=== PATIENT | male | born 1970 | race Caucasian/White ===

== ENCOUNTER 2024-12-10 13:47 | Outpatient (AMB) | payer OTHER, SELFPAY ==
[2024-12-10 14:00] VITALS: BMI 24.3
--- NOTE | 2024-12-10 14:00 | A.SPINEOV_ITS ---
Vital Signs 12/10/24 14:00 Height 5 ft 7 in Weight 155 lb BMI 24.3 Intake Visit Reasons: LBP Intake Note: Mr. Chen is here today c/o Low back pain, MRI done at [facility]. Black And White Printer Operator Required: No Physical Exam Vital Signs: BMI result Body Mass Index 24.3 Assessment & Plan Assessment & Plan (1) Back pain: Code(s): M54.9 - Dorsalgia, unspecified Category: Medical Plan this is a self-referred 54-year-old gentleman who comes in today for evaluation of low back pain. It started a number of years ago, maybe more than 5 years ago. It localizes itself and the center of his lumbosacral junction more on the left side. He was very active doing CrossFit exercises and it started as just a slight discomfort but it has gotten to the point now where it is accelerated to a persistent pain when he does any kind of bending or standing for any length of time. He has gone through some basic conservative treatment including physical therapy. He continues to do regular exercises at the gym to strengthen his low back and abdominal muscles. He also tried chiropractic without any significant benefit. He also tried acupuncture with limited results. He takes ibuprofen / Advil as needed. He was seen at the [facility], evaluated and he was enquiring about the intrasept procedure, but it sounds like he did not have a tremendous degree of confidence with their experience with this. He came in today for an evaluation to see if there is anything we could offer him in terms of surgery or procedures. Of note, he has no radicular symptoms. PMH: He is very healthy, has no major medical history, did recently have a carpal tunnel release Social hx: he does not smoke, drink use any recreational drugs Medications: Advil Allergies: none Physical exam: awake alert oriented no acute distress, strength reflexes and gait are normal Imaging review: lumbar MRI done at [facility] in September of 2023 reveals significant Modic Type 1 endplate changes at L5-S1 where there is severe disc collapse, greater on the left side. There is a little bit of this at L2-3 as well. Standing x-rays do not show any signs of instability. Impression: 54-year-old gentleman with a progressively worsening centralized low back pain in the lumbosacral junction more off to the left side that has been interfering with his quality of life now for quite some time. He used to be a lot more active, but now he has resigned to activities that do not provoke his pain. He used to run do a lot of other extracurricular activities but is no longer able to do these because of the pain. He has no symptoms radiating down his legs. He has been through generous amounts of conservative treatment with no relief. The pain is aggravated with standing or bending. His MRI clearly shows that he has significant Modic endplate changes at L5-S1 with severe disc collapse greater on the left side. I think the radiology report under reports this finding. I explained to him that I suspect it is the source of his pain but can not be 100%. The typical standard of treatment for this would be an anterior lumbar interbody fusion. He was enquiriing abount the intracept procedure, or the radiofrequency ablation of the basivertebral nerve. He does meet the indications for this procedure and we do have a colleague who has been doing it for quite some time. If he would like to try this I would be happy to refer him, however, with the understanding that it does not reverse the deterioration of the disc. He was inquiring about an artificial disc at the lumbar segment, but I reviewed his imaging with Dr. Augustine after he left and he said this is very high risk for fusion so he would not qualify for that procedure. I wanted him to think it over and get back to me how he would like to proceed and we can either r efer him to Dr. Nava or have a more involved discussion about lumbar fusion. Thank you for allowing us to care for your patient. The total time spent with this visit with this patient was 45 minutes reviewing history, physical exam, Lumbar imaging review, and implementation of treatment plan or further diagnostic testing Ko Augustine MD,PhD [facility] Orders: Orders XR lumbar spine 4V min Today M54.9 - Dorsalgia, unspecified Coding Level of Care Code New Pt Level 4 (76089) Diagnoses Back pain M54.9
--- OUTSIDE RECORDS SUMMARY | 2024-12-10 15:06 | XMS_ITS | Clinical Summary ---
Author Organization [facility] Address [address] [place] [address] Care Team Providers Care Surgery Scheduler Name Role Phone Alexandre Russo MD Primary Care Provider [phone] Allergies No known active allergies Medications fluticasone (FloNASE) 50 mcg/spray nasal sprayIndication s:PND (post-nasal drip) 2 sprays into each nostril daily. 1 Bottle 08/29/2019 Active Active Problems No known active problems Social History Tobacco Use Types Packs/Day Years Used Date Smoking Tobacco: Former Smokeless Tobacco: Never Alcohol Use Standard Drinks/Week Comments Yes 0 (1 standard drink = 0.6 oz pur e alcohol) Sex and Gender Information Value Date Recorded Sex Assigned at Not on file Legal Sex Male 11:57 AM EDT Gender Identity Not on file Sexual Orientation Not on file Last Filed Vital Signs Vital Sign Reading Time Taken Comments Blood Pressure 100/61 08/29/2019 8:08 AM EST Pulse 83 08/29/2019 8:08 AM EST Temperature 37.4 ??C (99.3 ??F) 08/29/2019 8:08 AM ES T Respiratory Rate 16 11/22/2018 8:16 AM EDT Oxygen Saturation 97% 08/29/2019 8:08 AM EST Inhaled Oxygen Concentration - - Weight 69.4 kg (153 lb) 08/29/2019 8:08 AM EST Height 172.7 cm (5' 8 ) 08/29/2019 8:08 AM EST Body Mass Index 23.26 08/29/2019 8:08 AM EST Plan of Treatment Health Maintenance Due Date Last Done Comments Hepatitis C Virus Screening 1970 HIV Screening 1983 DTaP/Tdap/Td Vaccines (1 - Tdap) 1989 Hepatitis B Vaccines (1 of 3 - 19+ 3-dose series) 08/1988 Colonoscopy 2015 Pneumococcal Vaccines 50+ (1 of 1 - PCV) 2020 Zoster (Shingles) Vaccine (1 of 2) 2020 Influenza Vaccine 03/06/2024 COVID-19 Vaccine ( - 2023-25 season) 2024 Insurance [facility] OUT OF [facility] - PPO Care Teams Surgery Scheduler Relationship Specialty Start Date End Date Alexandre Russo MD PCP - General 11/22/18
--- OUTSIDE RECORDS SUMMARY | 2024-12-10 15:06 | XMS_ITS | Data Portability ---
Author Organization [place] - [facility], [facility] Address [address] [place] [address] Care Team Providers Care Cone Operator Name Role Phone MARIANELA FAYE Primary Care Provider Assessment No assessment recorded. Plan of Treatment Reminders Order Date Submit Date Provider Last Modified By Organization Details Last Modified Time Details Appointments POST OP 30 2024 01:00P M Venita Durant, OTR/L,CHT Not available Not available Not available Lab None recorded. Referral None recorded. Procedures None recorded. Surgeries carpal tunnel release (SURG) 2024 025 [email or web address] [place], [address], [address], 11/27/2024 09:31:31 Imaging electromy ogram + nerve conductio n study - Diagnosis : RUE EVALUATE BRACHIAL PLEXUS CARPAL AND CUBITAL TUNNELS AND CERVICAL RADICULOP KRISTIAN, please schedule with Dr.Spellm whitehead or Dr.Marine King lexy 2024 025 [facility] [address], [address], 10/24/2024 03:23:06 Medication Orders None recorded. Patient TargetsNo targets recorded. Patient InstructionsNo instructions recorded. Reason for Referral None Reported. Results Created Date Observation Date Name Description Value Unit Range Abnormal Flag Note LastModifiedBy Organization Detail LastModifiedTime 10/24/19 25 10/23/2024 elect romyo gram + nerve condu ction study No observ ation record ed. [facility] [address] [place], [address], 10/24/2024 10:26:10 Result Notes None recorded. Problems Name Problem SNOMED Code Status Onset Date Resolution Date Notes Provider Name and Address Organization Details Recorded Time Pain of right wrist [id number] Active 2024 Elizabet Blanchard PA-C [address], [place], [address], [facility] 08:26:51 Problem Notes None recorded. Procedures Surgical History None recorded. Imaging Results Imaging Date Name Status LastModified by Organization Details LastModified Time 10/23/2024 electromyogram + nerve conduction study completed [facility] [address] [place] [address], [address], 10/24/2024 10:26:10 Procedure Notes None recorded. Medical Equipment None Reported. Allergies No known drug allergies Medications Name Sig Start Date Stop Date Status Note LastModified by Organization Details LastModified Time oxycodone 5 mg tablet Take 1 tablet every 4 hours by oral route as needed. 025 active Not Available Not Available Not Avai lable Vitals Date Recorded Body height Provider Name an d Address Organization Details Last Updated DateTime 08/25/2024 170.18 [facility] 08/25/2024 09:02:31 Date Recorded Body height Provider Name an d Address Organization Details Last Updated DateTime 11/04/2024 170.18 cm [facility] 11/04/2024 16:14:24 Social History None recorded. Functional Status None recorded. Mental Status None recorded. Family History Nothing Reported. Medical History No medical history recorded. Past Encounters Encounter ID Performer Location Encounter Start Date Encounter Closed Date Diagnosis/Indication Diagnosis SNOMED-CT Code Diagnosis ICD10 Code Diagnosis Note [id number] MD [facility] [place] [address] [place] [address] 08/25/2024 08:30:20 09/09/2024 15:05:32 Carpal tunnel syndrome of right wrist [id number] 74938 G56. [id number] MD [facility] [address] [place] [address] 11/04/2024 16:03:02 11/20/2024 10:17:40 Carpal tunnel syndrome of right wrist [id number] 18457 G56.01 Health Concerns Section Related Observation LastModified by Organization Detai ls LastModified Time None Recorded Concern Status LastModified by Organization Details LastModified Time None Recorded Advance Directives Directive None Recorded Payers Encounter Date Sequence Insurance Name Policy Number Policy Sharpe Covered Member ID Sharpe Member ID Guarantor Name 08/25/2024 1 [facility] [id number] Terrell Chen [id number] Terrell Chen 11/04/2024 1 [facility] [place] [id number] Terrell Chen [id number] Terrell Chen Notes Date Note Type Note Provider Name and Address Organization Details Recorded Time 08/25/2024 text/html Diagnosis: Right carpal tunnel syndrome 54-year-old male with a longstanding history of numbness and tingling in his right hand. This occurs in the middle and ring fingers and more recently the thumb. It is bothersome at night but also occurs during the day. He originally found a night splint to be helpful but less so now. Past family, medical, social history and review of systems has been reviewed, updated and is located in the patient? s chart. Examination: Healthy appearing patient in no apparent distress. Alert and oriented. He has symmetric range of motion of his bilateral wrist and digits. Provocative testing of wrist and digits reveal no instability. He has a negative Tinel's sign over his right carpal tunnel. Phalen's maneuver and carpal tunnel compression testing are negative bilaterally. No atrophy in either upper extremity. Brisk capillary refill in all digits Plan: The patient and I discussed the situation at length. The patient's history and physical examination are consistent with a peripheral nerve irritation. I would like to obtain an EMG/NCS to confirm the diagnosis and get a sense of its severity and location. The patient will follow-up with me after the study has been obtained. Flako Sexton MD [address], [place], [address], [facility] 08/25/2024 09:21:40 11/04/2024 text/html Diagnosis: Right carpal tunnel syndrome The patient returns at our request. Since his last visit he underwent an EMG/NCS of his right upper extremity. The patient reports that night splinting is treating his night discomfort but he continues to have numbness and tingling with activities during the day. Past family, medical, social history and review of systems has been reviewed, updated and is located in the patient? s chart. Examination: Healthy appearing patient in no apparent distress. Alert and oriented. HEENT: Normocephalic and atraumatic. Heart: Regular rate and rhythm. Lungs: Clear to auscultation bilaterally. Abdomen: Soft and nontender. Neurovascular exam: Carpal tunnel compression testing is positive on the right. Extremities: He has symmetric range of motion of his bilateral wrist and digits. Provocative testing of wrist and digits reveal no instability. No atrophy in either upper extremity. Brisk capillary refill in all digits I reviewed an EMG/NCS of his right upper extremity. The findings were consistent with moderately severe right carpal tunnel syndrome. Plan: The patient and I discussed the situation at length. The patient's history, physical findings and electrodiagnostic studies are consistent with right carpal tunnel syndrome. I described the nature of carpal tunnel syndrome and treatment options. The patient would like to proceed with a right carpal tunnel release. We discussed the nature of the surgery and potential risks including infection, injury to blood vessels, tendons, nerves, incomplete relief of numbness and palmar tenderness. All of the patient's questions were answered. We will perform the procedure at the patient's earliest possible convenience. Flako Sexton MD [facility] [address], [place], [address], [facility] 11/04/2024 16:25:28
== END 2024-12-10 15:26 | disposition home or self-care (01) ==
LOC: HO.HNS 13:47
PROVIDERS: PCP Internal Medicine; Visit Provider Physician Assistant
DX: M54.9 Dorsalgia, unspecified (principal)
CPT/HCPCS: 99204

== ENCOUNTER 2024-12-10 13:47 | Outpatient (REF) | payer OTHER, SELFPAY ==
--- NOTE | ~2024-12-10 | XR_ITS ---
EXAMINATION: XR LUMBOSACRAL SPINE CLINICAL INFORMATION: M54.9 - Dorsalgia, unspecified COMPARISON: None available. TECHNIQUE: 4 views of the lumbar spine, inclusive of flexion and extension views, were obtained. FINDINGS: No significant scoliosis. Normal lordosis. Normal bone mineralization. Transitional lumbosacral anatomy present. For the purposes of this report, the last fully formed vertebral body will be termed L5, and the last fully formed disc space L5-S1. If intervention is considered, verification of levels is recommended. There is minimal ventral wedging of T12 and L1, chronic appearance. Neutral view demonstrates a 3 mm retrolisthesis of L2 on L3. Mild disc degeneration is present T12-L1 and L1-L2, with moderate degeneration L5-S1. There is a rudimentary disc at S1-S2. There is normal facet alignment. There is mild degenerative facet change at L4-S1. On flexion and extension, no significant change in the mild retrolisthesis or new subluxation. No evidence of instability. Normal-appearing soft tissues. XR/XR lumbar spine 4V min IMPRESSION: 1. No acute bony abnormalities. 2. Transitional lumbosacral anatomy as described. 3. Mild degenerative spondylosis. Minimal ventral wedging of T12 and L1, chronic. 4. No evidence of instability on flexion and extension views. Electronically signed by: Xander Le MD 12/10/2024 03:07 PM EDT
--- OUTSIDE RECORDS SUMMARY | 2024-12-10 15:31 | XMS_ITS | Clinical Summary ---
Author Organization [facility] Address [address] [place] [address] Care Team Providers Care Trash Collector Name Role Phone Alexandre Russo MD Primary Care Provider [phone] Allergies No known active allergies Medications fluticasone [...] Vaccine ( - 2023-25 season) [address] [facility] OF [facility] - PPO Care Teams Trash Collector Relationship Specialty Start Date End Date Alexandre Russo MD PCP - General 11/22/18
== END 2024-12-10 13:48 | disposition home or self-care (01) ==
LOC: HO.HOSX 13:47
PROVIDERS: PCP Internal Medicine; Visit Provider Physician Assistant
DX: M54.9 Dorsalgia, unspecified (principal)
CPT/HCPCS: 72110

== ENCOUNTER → 2024-12-10 14:27 | Outpatient (BNV) | payer OTHER, SELFPAY | PROVIDERS: PCP Internal Medicine; Visit Provider Radiology Diagnostic Radiology | DX: M54.50 Low back pain, unspecified (principal) | CPT/HCPCS: 72110 ==